=== PATIENT | female | born 2000 | race Caucasian/White ===

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

== ENCOUNTER 2025-09-07 18:20 | Emergency (ER) | payer MEDICAID ==
[~2025-09-07] VITALS: Ht 162.6 cm; Wt 60.0 kg
[2025-09-07 18:28] VITALS: O2SAT 100
[2025-09-07] MEDS: KETOROLAC 15MG/ML VIAL IM ONE (18:45)
[2025-09-07] MEDS ORDERED: DEXAMETHASONE 1 MG/ML ORAL SYR PO ONE (18:45)
[2025-09-07] MEDS: DEXAMETHASONE 4MG TABLET PO SCH (18:52)
[2025-09-07 19:23] LABS: INFLUENZA TYPE A Presumptive Negative (Pres. Neg.)
[2025-09-07 19:24] LABS: INFLUENZA TYPE B Presumptive Negative (Pres. Neg.)
[2025-09-07] MEDS ORDERED: IBUP-2028 MT (19:30)
[2025-09-07 19:46] VITALS: BP 119/68; PULSE 53; RESP 12; TEMP 37.2; O2SAT 100
== END 2025-09-07 19:48 | disposition home or self-care (01) ==
LOC: ER 18:20
DX: J02.8 Acute pharyngitis due to other specified organisms (principal); B97.89 Other viral agents as the cause of diseases classified elsewhere; F12.90 Cannabis use, unspecified, uncomplicated; Z79.899 Other long term (current) drug therapy; Z20.822 Contact with and (suspected) exposure to COVID-19; Z98.890 Other specified postprocedural states; Z79.52 Long term (current) use of systemic steroids
CPT/HCPCS: 99283; 87426; 81025; 87430; 87070; 87804 ×2; 96372; J1885; J8540 ×2